=== PATIENT | female | born 1930 | race Caucasian/White ===

== ENCOUNTER 2016-12-20 11:45 | Emergency (ER) | payer MEDICARE, OTHER ==
--- NOTE | ~2016-12-20 | CT52 ---
[facility] A Service of [facility] RADIOLOGY TEXT RESULTS PATIENT: CAESAR FISHER LOCATION: SED : 30 UNIT #: [id number] AGE: [address]: Serena Huerta MD SEX: F ORDER DR: [id number] [place] [id number] E MR#: [id number] Acc #: [id number] NAME: CAESAR FISHER : 1930 SEX: F STUDY DATE/TIME: 12/20/2016 12:02 UNIT: SED ROOM: STUDY DESCRIPTION: CT Cervical Spine Wo Cont Attending Physician: Serena Huerta M.D. Ordering Physician: Serena Huerta M.D. Primary Care Physician: Amina Camara A.P.R.N. MEDICAL IMAGING REPORT This report is preliminary unless electronic signature is present. EXAM Cervical spine CT without contrast HISTORY The patient fell. Acute presentation. Hit head. Large hematoma on left forehead. Has a stiff neck and neck pain. History of prior cervical spine surgery. TECHNIQUE CT of the cervical spine performed in the axial plane without contrast followed by sagittal and coronal reconstructed imaging. This CT exam was performed with one or more of the following radiation dose reduction techniques: automatic exposure control, adjustment of mA and/or kV according to patient size, and iterative reconstruction. FINDINGS There is no prior imaging of the cervical spine at this institution. The patient has had extensive fusion from C3 to C7. This includes an anterior plate and screws at C3-4 and there is fusion from C4 to C7 without hardware. The bony fusion appears to be essentially complete from C4 to C7 and there is associated reversal of cervical lordosis. There is some exaggerated cervical lordosis at C2-3, probably incompensation. Endplate spondylosis is moderate to severe at C7-T1. Facet arthritis is asymmetrically severe on the left-sided C2-3. There is also considerable arthritis at C1-2 joint especially anteriorly. No acute fracture is suspected. There is some bony foraminal narrowing on the left side at C2-3, moderate to severe, milder on the right. There is no bony canal stenosis. At C3-4, no bony canal stenosis. There is mild bony foraminal narrowing on the left. [facility] A Service of [facility] & [facility] RADIOLOGY TEXT RESULTS PATIENT: CAESAR FISHER LOCATION: [facility] [place] : 30 UNIT #: [id number] AGE: [address]: Serena Huerta MD SEX: F ORDER DR: At C4-5, no bony canal stenosis. Mild bilateral bony foraminal narrowing. At C5-6, no bony canal stenosis. No significant bony foraminal impingement. At C6-7, no bony canal stenosis. Mild bony foraminal narrowing on the right. At C7-T1, endplate spondylosis and uncovertebral osteophyte formation with bilateral facet degenerative change. There is fairly severe bony foraminal narrowing on the left and more moderate bony foraminal narrowing on the right. Probably not significant bony canal compromise. Also advanced degenerative disease at T1-2 and T2-3. The patient has vascular calcifications including the carotid bifurcations and I would suggest correlation with a follow-up carotid Doppler ultrasound to determine the degree of stenosis. This might be hemodynamically significant. There is no prevertebral fluid collection suspected. Heterogeneous areas of lower attenuation noted in the thyroid gland with some calcifications especially on the left where area of heterogeneous attenuation about 1.4 cm in dimension. This should be characterized further with a thyroid ultrasound on a non-emergent basis. Also a hypoechoic area in the right lobe about 1.3 cm in dimension. IMPRESSION 1. The patient has had extensive prior cervical spine fusion and there is reversal of cervical lordosis from about C4 to C7. No acute fracture or traumatic malalignment is suspected. There is multiple level cervical degenerative disease. This includes advanced disease above and below the level of the fusion at C2-3 and C7-T1 in particular. There is no significant bony canal stenosis but there is multiple level bony foraminal impingement. If more information is needed this is best pursued with an MRI if the patient is a candidate on a non-emergent basis. 2. Prominent atherosclerotic vascular calcifications including carotid bifurcations. Recommend correlation with a carotid Doppler ultrasound to evaluate for possible hemodynamically significant disease. Nonspecific low attenuation lesions in the thyroid gland noted, some of which are calcified and I would recommend correlation with a non-emergent thyroid ultrasound. Dictated by... Vanessa Chun M.D. THIS IS AN ELECTRONICALLY VERIFIED REPORT Vanessa Chun M.D. at 12/22/2016 8:40 AM KRISTOFER/catia [facility] [place] A Service of [facility] & [facility] RADIOLOGY TEXT RESULTS PATIENT: CA[facility]AR FISH[id number] UNIT #: [id number] AGE: [address]: Serena Huerta MD SEX: F ORDER DR: TD: 12/21/2016 08:44 JOB #: [id number] MEDICAL IMAGING REPORT Page 1 of 1
--- NOTE | ~2016-12-20 | CT71 ---
[facility] A Service of [facility] & [facility] RADIOLOGY TEXT RESULTS PATIENT: CAESAR FISHER LOCATION: SED : 30 UNIT #: [id number] AGE: [address]: Serena Huerta MD SEX: F ORDER DR: [id number] [place] [id number] E MR#: [id number] Acc #: [id number] NAME: CAESAR FISHER : 1930 SEX: F STUDY DATE/TIME: 12/20/2016 11:54 UNIT: SED ROOM: STUDY DESCRIPTION: CT Head Wo Contrast Attending Physician: Serena Huerta M.D. Ordering Physician: Serena Huerta M.D. Primary Care Physician: Amina Camara A.P.R.N. MEDICAL IMAGING REPORT This report is preliminary unless electronic signature is present. EXAM CT of the head without contrast HISTORY Head pain after patient fell, hit head and developed a large hematoma on the left forehead. She has a headache, stiff neck and neck pain also. No loss of consciousness. Acute injury/ER presentation. COMMENT Routine noncontrast head CT is reviewed. There is a previous MRI of the brain from [address] examination was performed with one or more of the following radiation dose reduction techniques: automatic exposure control, adjustment of mA and/or kV according to patient size, and iterative reconstruction. Partly redemonstrated is a known partially calcified meningioma at the posteromedial left frontal lobe in a parafalcine location. It is about 1.1 cm in diameter and is probably not changed from the MRI. There is no displaced calvarial fracture. There is soft tissue swelling left forehead region consistent with the hematoma. The visualized paranasal sinuses show some mucosal thickening or retained secretions in the left sphenoid sinus but there is no air-fluid level. The mastoid air cells are clear. There are moderate to severe vascular calcifications at the base of the brain. There is no evidence for acute intracranial hemorrhage or extraaxial fluid collection. There is generalized atrophy and extensive white matter low-attenuation which is likely due to small vessel disease. Focal lacunar disease at the right posterior corley radiata. This extends into the posterior limb of the right internal capsule and posterior right basal ganglia. This is chronic in appearance. There is no intracranial mass effect. [facility] A Service of [facility] RADIOLOGY TEXT RESULTS PATIENT: CAESAR FISHER LOCATION: [facility] [place] : 30 UNIT #: [id number] AGE: [address]: BradleySerena Mar [place] SEX: F ORDER DR: IMPRESSION 1. No acute intracranial injury. 2. Left forehead soft tissue hematoma. 3. Incidental known left posteromedial frontal meningioma seen probably not changed from 2010 with only mild local mass effect. 4. 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 Dictated by... Vanessa Chun M.D. THIS IS AN ELECTRONICALLY VERIFIED REPORT Vanessa Chun M.D. at 12/22/2016 8:40 AM KRISTOFER/jessica TD: 12/21/2016 08:43 JOB #: [id number] MEDICAL IMAGING REPORT Page 1 of 1
[~2016-12-20 11:45] MED LIST: AMBIEN PO; AMLODIPINE BESY10 MG PO; ATENOLOL25 MG PO; CYMBALTA30 MG PO; IMODIUM MS REL1 EAC1 PO; LIDODERM30 EA TOP; LORTAB 10-5001 EACH; LORTAB 7.5-5001 TAB PO; MEDROL4 MG/DOSE- PO; METFORMIN HCL500 M1 PO; NEURONTIN300 MG PO; NOVOLOG100 U/ML SUBQ; OS-CAL 500 + D500 MG PO; PRILOSEC20 MG PO; SKELAXIN PO; ZESTRIL40 MG PO
[2016-12-20] MEDS ORDERED: AMBIEN (11:47)
[2016-12-20] MEDS ORDERED: AMLODIPINE BESY10 MG PO (11:47)
[2016-12-20] MEDS ORDERED: DULCOLAX5 M1 (11:48)
[2016-12-20] MEDS ORDERED: COUMADIN (11:48)
[2016-12-20] MEDS ORDERED: ZESTRIL40 MG (11:48)
[2016-12-20] MEDS ORDERED: GLUCOPHAGE500 MG PO (11:49)
[2016-12-20] MEDS ORDERED: HYDROCODON-ACE1 EAC9 (11:49)
[2016-12-20] MEDS ORDERED: PROZAC PO (11:50)
[2016-12-20] MEDS ORDERED: REMERON PO (11:50)
[2016-12-20] MEDS ORDERED: SINGULAIR PO (11:50)
== END 2016-12-20 14:04 | disposition home or self-care (01) ==
LOC: SED 11:45
DX: S00.83XA Contusion of other part of head, initial encounter (principal); Z86.73 Personal history of transient ischemic attack (TIA), and cerebral infarction without residual deficits; Z79.01 Long term (current) use of anticoagulants; Z79.899 Other long term (current) drug therapy; W18.39XA Other fall on same level, initial encounter; Y92.009 Unspecified place in unspecified non-institutional (private) residence as the place of occurrence of the external cause
CPT/HCPCS: 70450; 72125; 99284